=== PATIENT | female | born 1965 | race African-American/Black ===

== ENCOUNTER 2023-05-12 10:59 | Inpatient (IN) | payer OTHER ==
[~2023-05-12 10:59] MED LIST: Iopamidol 300 61% 100 ML VIAL FS ONE
[2023-05-12 11:37] LABS: #Eosinphils 0.1 10x3/uL (0.0-0.5); #Monocytes 0.6 10x3/uL (0.0-1.1); #Neutrophils 3.6 10x3/uL (1.5-8.4); %Basophils 0.7 % (0.0-2.0); %Eosinophils 2.1 % (0.0-6.0); %Lymphocytes 23.5 % (18.0-47.0); %Monocytes 10.8 % (0.0-10.0); %Neutrophils 62.7 % (40.0-75.0); Hematocrit 40.6 % (34.9-44.5); Hemoglobin 13.7 g/dL (12.0-15.5); Mean Corpuscular HGB CONC 33.7 g/dL (32.0-36.0); Mean Corpuscular Hemoglobin 28.2 pg (27.0-33.0); Mean Corpuscular Volume 83.5 fl (81.6-98.3); Mean Platelet Volume 12.6 fl (7.4-10.4); Platelet Count 183 10x3/uL (150-450); RBC Distribution Width 15.7 % (11.5-14.5); Red Blood Cell (RBC) Count 4.86 10x6/uL (3.90-5.03); White Blood Cell (WBC) Count 5.8 10x3/uL (3.5-10.5)
[2023-05-12 11:58] LABS: ALT (SGPT) 23 U/L (8-55); AST (SGOT) 25 U/L (5-34); Alkaline Phosphatase 74 U/L (40-110); Anion Gap 14 mmol/L (10-20); BUN (Urea Nitrogen) 6 mg/dL (9.8-20.1); Bilirubin, Total 1.3 mg/dL (0.2-1.2); Calc. Creatinine Clearance 0 mL/min (70-130); Calcium 10.1 mg/dL (7.8-10.44); Carbon Dioxide 27 mmol/L (22-29); Chloride 105 mmol/L (98-107); Estimated GFR 106; Globulin 3.5 g/dL (2.4-3.5); Glucose 95 mg/dL (70-105); Potassium 3.6 mmol/L (3.5-5.1); Protein, Total 7.5 g/dL (6.0-8.3); Sodium 142 mmol/L (136-145)
[2023-05-12] MEDS ORDERED: Lidocaine 2% Viscous 10 mL, Alum & Magn 30 mL SSW SCH (12:00)
[2023-05-12 12:02] LABS: Magnesium 1.8 mg/dL (1.6-2.6)
[2023-05-12 12:08] LABS: Troponin I Less than 0.010 ng/mL (< 0.028)
[2023-05-12 12:17] LABS: Lipase Less than 4 U/L (8-78)
[2023-05-12] MEDS ORDERED: Morphine 4 MG/ML VIAL ONE (13:11)
[2023-05-12] MEDS ORDERED: Ondansetron PF 4 MG/2 ML Vial ONE ×2 (13:11→15:48)
[2023-05-12] MEDS ORDERED: Bupivacaine PF 0.5% 30 ML VIAL ONE (14:11)
[2023-05-12] MEDS ORDERED: EPINEPHrine 1 MG/ML VIAL ONE (14:11)
[2023-05-12] MEDS ORDERED: fentaNYL 50 mcg/mL 1 mL Vial ONE (14:17)
[2023-05-12] MEDS ORDERED: Rocuronium Bromide 10 MG/ML (10ML VIAL) ONE (14:17)
[2023-05-12] MEDS ORDERED: Lidocaine 1% PF 5 ML VIAL ONE (14:17)
[2023-05-12] MEDS ORDERED: PROPOFOL 20 ML ONE (14:17)
[2023-05-12] MEDS ORDERED: SUCCINYLCHOLINE/SOD CL,ISO/PF 200 MG/10 ML SYRINGE FS ONE (14:23)
[2023-05-12] MEDS ORDERED: ceFOXitin 1 GM VIAL ONE (14:55)
[2023-05-12] MEDS ORDERED: Famotidine/PF 20 mg/2ml Vial ONE (15:10)
[2023-05-12] MEDS ORDERED: PHENYLEPHRINE-NS 100 MCG/ML 10 ML SYRINGE ONE (15:42)
[2023-05-12] MEDS ORDERED: SUGAMMADEX SODIUM 200 MG/2 ML VIAL ONE (15:48)
[2023-05-12] MEDS ORDERED: Dexamethasone 4 mg/ml Vial ONE (15:48)
[2023-05-12] MEDS ORDERED: ePHEDrine Sulfate 50 MG/10 ML VIAL ONE (16:16)
[2023-05-12] MEDS ORDERED: Dextrose 50% Abboject 50 ML SYRINGE SLOW IVP PRN (17:30)
[2023-05-12] MEDS ORDERED: Glucagon 1 MG/ML KIT IM PRN (17:30)
[2023-05-12] MEDS ORDERED: Ipratropium/Albuterol 3 ML NEB NEB PRN (17:30)
[2023-05-12] MEDS ORDERED: Ondansetron PF 4 MG/2 ML Vial IVP PRN (17:30)
[2023-05-12] MEDS ORDERED: hydrALAZINE 20 MG/ML VIAL SLOW IVP PRN (17:30)
[2023-05-12] MEDS ORDERED: Dextrose 5% in Water 1,000 ML IV PRN (17:30)
[2023-05-12] MEDS ORDERED: Morphine 2 MG/ML VIAL SLOW IVP PRN (17:30)
[2023-05-12] MEDS: Ketorolac Tromethamine 30 MG (1 mL) VIAL IVP SCH (18:30)
[2023-05-12] MEDS: D5 1/2 NS w/20 mEq KCL 1,000 ML IV SCH (18:30)
[2023-05-12 20:53] VITALS: BMI 34.0
[2023-05-12 21:34] VITALS: BP 129/63; TEMP 97.8
[2023-05-12] MEDS: Famotidine/PF 20 mg/2ml Vial SLOW IVP SCH (23:17)
[2023-05-13] MEDS: Ketorolac Tromethamine 30 MG (1 mL) VIAL IVP SCH ×3 (01:00→13:27)
[2023-05-13] MEDS: Famotidine/PF 20 mg/2ml Vial SLOW IVP SCH ×2 (08:20→08:37)
[2023-05-13] MEDS: Enoxaparin 40 MG (0.4 mL) SYRINGE SC SCH ×2 (08:20→08:36)
[2023-05-13] MEDS: D5 1/2 NS w/20 mEq KCL 1,000 ML IV SCH (08:21)
== END 2023-05-13 15:10 | disposition home or self-care (01) | DRG 336 ==
LOC: CSHERS 10:59 → CSHSDC/OP 14:37 → CSHTELE 19:57
PROVIDERS: ADMIT Surgery; ATTEND Surgery
PROC: 0DNU4ZZ Release Omentum, Percutaneous Endoscopic Approach (ICD-10-PCS; principal; 2023-05-12)
PROC: 0DBU4ZZ Excision of Omentum, Percutaneous Endoscopic Approach (ICD-10-PCS; 2023-05-12)
PROC: 0DQV4ZZ Repair Mesentery, Percutaneous Endoscopic Approach (ICD-10-PCS; 2023-05-12)
DX: K46.0 Unspecified abdominal hernia with obstruction, without gangrene (principal); K56.50 Intestinal adhesions [bands], unspecified as to partial versus complete obstruction; E66.01 Morbid (severe) obesity due to excess calories; I10 Essential (primary) hypertension; E78.5 Hyperlipidemia, unspecified; K21.9 Gastro-esophageal reflux disease without esophagitis; H40.9 Unspecified glaucoma; H91.90 Unspecified hearing loss, unspecified ear; Z90.49 Acquired absence of other specified parts of digestive tract; Z99.3 Dependence on wheelchair; Z90.710 Acquired absence of both cervix and uterus; Z98.84 Bariatric surgery status; Z88.6 Allergy status to analgesic agent; Z88.8 Allergy status to other drugs, medicaments and biological substances; Z68.34 Body mass index [BMI] 34.0-34.9, adult; Z74.01 Bed confinement status
CPT/HCPCS: 36415; 36416; 74177; 80053; 83690; 83735; 84484; 85025; 93005; 96374; 96375; J0171; J0665; J0694; J1100; J1650; J1885; J2270; J2272; J2405; J2704; J3010; J3480; Q9967; S0028

== ENCOUNTER 2023-05-17 20:07 | Emergency (ER) | payer OTHER | END 2023-05-17 23:35 | disposition home or self-care (01) | LOC: CSHERS 20:07 | DX: K59.00 Constipation, unspecified (principal); I10 Essential (primary) hypertension; Z79.899 Other long term (current) drug therapy; Z55.6 Problems related to health literacy | CPT/HCPCS: 74019 ==

== ENCOUNTER 2024-05-11 11:59 | Outpatient (CLI) | payer OTHER ==
[~2024-05-11 11:59] MED LIST changes: -Iopamidol 300 61% 100 ML VIAL FS ONE; +Magnevist 469MG/ML 20 ML VIAL ONE
== END 2024-05-11 12:00 | disposition home or self-care (01) ==
LOC: CSHMRI 11:59
PROVIDERS: ATTEND Nurse Practitioner Family
DX: N28.89 Other specified disorders of kidney and ureter (principal); D73.4 Cyst of spleen
CPT/HCPCS: 74183

== ENCOUNTER 2025-01-16 13:18 | Emergency (ER) | payer OTHER ==
[2025-01-16] MEDS ORDERED: HYDROcodone/Acetaminophen 5/325 mg Tablet ONE (15:14)
== END 2025-01-16 16:42 | disposition home or self-care (01) ==
LOC: CSHERS 13:18
DX: M25.511 Pain in right shoulder (principal); M75.121 Complete rotator cuff tear or rupture of right shoulder, not specified as traumatic; I10 Essential (primary) hypertension
CPT/HCPCS: 93005; 96372; 99283; J2919